=== PATIENT | female | born 1990 | race Caucasian/White ===

== ENCOUNTER 2022-11-01 19:15 | Inpatient (IN) | payer BC ==
[2022-11-01] MEDS ORDERED: Bupivacaine 0.25% HCL 30 ML VIAL ONE (19:29)
[2022-11-01] MEDS ORDERED: Bupivacaine HCl 0.5%/Epinephrine 1:200,000/PF 30 ml Vial ONE (19:29)
[2022-11-01] MEDS ORDERED: Butorphanol Tartrate 1 MG/ML VIAL SLOW IVP PRN (20:35)
[2022-11-01] MEDS ORDERED: Docusate 100 MG CAP PO PRN (20:35)
[2022-11-01] MEDS ORDERED: NS w/ Oxytocin 30 units 500 ML IV SCH (20:35)
[2022-11-01] MEDS ORDERED: Acetaminophen 500 MG TAB PO PRN (20:35)
[2022-11-01] MEDS ORDERED: Promethazine HCl 25 MG/ML VIAL IM PRN (20:35)
[2022-11-01] MEDS ORDERED: Misoprostol 200 MCG TAB PR PRN (20:35)
[2022-11-01] MEDS ORDERED: Diphenoxylate HCl/Atropine Tablet PO PRN ×2 (20:35)
[2022-11-01] MEDS ORDERED: Ondansetron PF 4 MG/2 ML Vial IVP PRN (20:35)
[2022-11-01] MEDS ORDERED: Zolpidem Tartrate 5 MG TAB PO PRN (20:35)
[2022-11-01] MEDS ORDERED: hydrALAZINE 20 MG/ML VIAL SLOW IVP PRN (20:35)
[2022-11-01] MEDS ORDERED: Ibuprofen 800 MG TAB PO PRN (20:35)
[2022-11-01] MEDS ORDERED: HYDROcodone/Acetaminophen 5/325 mg Tablet PO PRN ×2 (20:35)
[2022-11-01] MEDS ORDERED: Lidocaine 1% (PF) 30 ML VIAL SC PRN (20:35)
[2022-11-01] MEDS ORDERED: Misoprostol 100 MCG TAB VAG SCH (21:00)
[2022-11-01 21:39] LABS: Hemoglobin 12.4 g/dL (12.0-15.5); Mean Corpuscular HGB CONC 36.9 g/dL (32.0-36.0); Mean Platelet Volume 10.5 fl (7.4-10.4); Platelet Count 206 10x3/uL (150-450); RBC Distribution Width 12.4 % (11.5-14.5); White Blood Cell (WBC) Count 13.2 10x3/uL (3.5-10.5)
[2022-11-01 21:46] VITALS: BMI 31.8
[2022-11-01 22:29] LABS: HBSAg Index 0.14 S/CO (0-0.99); HIV (1/2) Antibody/Antigen Non-Reactive (NonReactive); HIV 1/2 INDEX 0.11 S/CO (<1.00); Hep B Surf Ag Non-Reactive S/CO (NonReactive)
[2022-11-01 22:30] LABS: Syphilis Antibody Nonreactive (Nonreactive); Syphilis Antibody Index 0.37 S/CO (<1.00 Non-Reactive)
[2022-11-02] MEDS ORDERED: Fentanyl 2 mcg/Bup 0.1% Cadd 100 ML ONE (06:50)
[2022-11-02] MEDS ORDERED: Naloxone HCl 0.4 mg/ml Vial IVP PRN ×2 (07:04)
[2022-11-02] MEDS ORDERED: Lactated Ringer's 500 ML IV PRN (07:04)
[2022-11-02] MEDS ORDERED: ePHEDrine Sulfate 50 MG/10 ML VIAL SLOW IVP PRN (07:04)
[2022-11-02] MEDS ORDERED: Moisturizing Cream (Eucerin) 113 GM JAR TOP PRN (07:04)
[2022-11-02] MEDS ORDERED: Acetaminophen 325 MG TAB PO PRN (07:04)
[2022-11-02] MEDS ORDERED: diphenhydrAMINE 50 MG/ML VIAL IVP PRN (07:04)
[2022-11-02] MEDS ORDERED: Promethazine HCl 25 MG/ML VIAL IM PRN (07:04)
[2022-11-02] MEDS ORDERED: Ondansetron PF 4 MG/2 ML Vial IVP PRN ×2 (07:04→21:30)
[2022-11-02] MEDS ORDERED: Communication Order-Pharmacy FS SCH (07:15)
[2022-11-02] MEDS: Fentanyl 2 mcg/Bupivacaine 0.1% Cassette 100 ML EPIDURAL SCH ×2 (07:38→15:53)
[2022-11-02 16:30] LABS: SARS-CoV-2 NAA Rapid Test Not Detected (NotDetected)
[2022-11-02] MEDS ORDERED: Preparation H Ointment 28 GM TUBE PR PRN (21:30)
[2022-11-02] MEDS ORDERED: Lanolin Ointment 7 GM TUBE TOP PRN (21:30)
[2022-11-02] MEDS ORDERED: Bisacodyl 10 MG SUPP PR PRN (21:30)
[2022-11-02] MEDS ORDERED: Benzocaine-Menthol 82.5 ML CAN TOP PRN (21:30)
[2022-11-02] MEDS ORDERED: HYDROcodone/Acetaminophen 5/325 mg Tablet PO PRN (21:30)
[2022-11-02] MEDS ORDERED: diphenhydrAMINE 25 MG CAP PO PRN (21:30)
[2022-11-02] MEDS ORDERED: Boostrix 0.5 ML (Tdap) VIAL (>/=7 yrs of age) IM SCH (21:30)
[2022-11-02] MEDS ORDERED: Milk Of Magnesia 30 ML UDCUP PO PRN (21:30)
[2022-11-02] MEDS ORDERED: hydrALAZINE 20 MG/ML VIAL SLOW IVP PRN (21:31)
[2022-11-02] MEDS ORDERED: Witch Hazel-Glycerin 1 EACH JAR TOP PRN (21:32)
[2022-11-02] MEDS ORDERED: NS w/ Oxytocin 30 units 500 ML IVPB PRN (21:32)
[2022-11-02] MEDS: Ibuprofen 800 MG TAB PO SCH (22:06)
[2022-11-03] MEDS: HYDROcodone/Acetaminophen 5/325 mg Tablet PO PRN ×2 (04:33→11:02)
[2022-11-03] MEDS: Ibuprofen 800 MG TAB PO SCH ×2 (05:18→15:28)
[2022-11-03] MEDS: Ferrous Sulfate 325 MG TAB PO SCH ×2 (07:21→17:09)
[2022-11-03] MEDS ORDERED: Docusate 100 MG CAP PO SCH (09:00)
[2022-11-03] MEDS ORDERED: Prenatal Vitamin 1 TAB PO SCH (09:00)
[2022-11-03] MEDS: Lactated Ringer's 1,000 ML IV SCH (17:37)
[2022-11-03 19:52] VITALS: BP 133/75; TEMP 98
== END 2022-11-03 20:30 | disposition home or self-care (01) | DRG 807 ==
LOC: CSHLD 20:07 → CSHPP 11-02 20:15
PROVIDERS: ADMIT Obstetrics & Gynecology; ATTEND Obstetrics & Gynecology
PROC: 10E0XZZ Delivery of Products of Conception, External Approach (ICD-10-PCS; principal; 2022-11-02)
PROC: 0HQ9XZZ Repair Perineum Skin, External Approach (ICD-10-PCS; 2022-11-02)
PROC: 10907ZC Drainage of Amniotic Fluid, Therapeutic from Products of Conception, Via Natural or Artificial Opening (ICD-10-PCS; 2022-11-02)
PROC: 3E0P7VZ Introduction of Hormone into Female Reproductive, Via Natural or Artificial Opening (ICD-10-PCS; 2022-11-02)
DX: O70.0 First degree perineal laceration during delivery (principal); Z37.0 Single live birth; Z3A.39 39 weeks gestation of pregnancy; Z20.822 Contact with and (suspected) exposure to COVID-19
CPT/HCPCS: 51702; 85027; 86780; 86850; 86900; 86901; 87340; 87389; S0020; U0002

== ENCOUNTER 2024-02-17 05:26 | Inpatient (IN) | payer BC ==
[2024-02-17] MEDS ORDERED: Ibuprofen 800 MG TAB PO PRN (05:54)
[2024-02-17] MEDS ORDERED: Lidocaine 1% (PF) 30 ML VIAL SC PRN (05:54)
[2024-02-17] MEDS ORDERED: Lactated Ringer's 1,000 ML IV SCH (05:54)
[2024-02-17] MEDS ORDERED: Docusate 100 MG CAP PO PRN (05:54)
[2024-02-17] MEDS ORDERED: Penicillin G Potassium 5 MILL.UNITS in Sodium Chloride 0.9% 100 ML IVPB SCH (05:54)
[2024-02-17] MEDS ORDERED: Misoprostol 200 MCG TAB PR PRN (05:54)
[2024-02-17] MEDS ORDERED: Acetaminophen 500 MG TAB PO PRN (05:54)
[2024-02-17] MEDS ORDERED: Methylergonovine 0.2 MG/ML VIAL IM PRN (05:54)
[2024-02-17] MEDS ORDERED: Ondansetron PF 4 MG/2 ML Vial IVP PRN ×3 (05:54→15:44)
[2024-02-17] MEDS ORDERED: Carboprost 250 MCG/ML AMP IM PRN (05:54)
[2024-02-17] MEDS ORDERED: Diphenoxylate HCl/Atropine Tablet PO PRN ×2 (05:54)
[2024-02-17] MEDS ORDERED: HYDROcodone/Acetaminophen 5/325 mg Tablet PO PRN ×2 (05:54)
[2024-02-17] MEDS ORDERED: Oxytocin 30 units/NS 500 ML 500 ML IV SCH ×2 (05:54→15:45)
[2024-02-17] MEDS ORDERED: hydrALAZINE 20 MG/ML VIAL SLOW IVP PRN ×2 (05:54→15:44)
[2024-02-17] MEDS ORDERED: Promethazine HCl 25 MG/ML VIAL IM PRN ×2 (05:54→08:59)
[2024-02-17 06:08] VITALS: BMI 33.3
[2024-02-17] MEDS: Oxytocin 30 units/NS 500 ML 500 ML IV SCH ×2 (06:44→16:38)
[2024-02-17] MEDS: Penicillin G Potassium 5 MILL.UNITS in Sodium Chloride 0.9% 100 ML IVPB SCH (06:44)
[2024-02-17 06:49] LABS: Hemoglobin 12.2 g/dL (12.0-15.5); Mean Corpuscular HGB CONC 35.9 g/dL (32.0-36.0); Mean Corpuscular Hemoglobin 29.8 pg (27.0-33.0); Mean Corpuscular Volume 82.9 fl (81.6-98.3); Mean Platelet Volume 11.5 fl (7.4-10.4); Platelet Count 183 10x3/uL (150-450); RBC Distribution Width 13.2 % (11.5-14.5); White Blood Cell (WBC) Count 10.3 10x3/uL (3.5-10.5)
[2024-02-17 07:35] LABS: HBSAg Index 0.23 S/CO (0-0.99); Hep B Surf Ag - L&D Non-Reactive S/CO (NonReactive)
[2024-02-17 07:36] LABS: Syphilis Antibody Nonreactive (Nonreactive); Syphilis Antibody Index 0.51 S/CO (<1.00 Non-Reactive)
[2024-02-17 07:37] LABS: HIV (1/2) Antibody/Antigen Non-Reactive (NonReactive); HIV 1/2 INDEX 0.14 S/CO (<1.00)
[2024-02-17] MEDS: fentaNYL 50 mcg/mL 1 mL Vial SLOW IVP PRN (08:55)
[2024-02-17] MEDS ORDERED: Naloxone HCl 0.4 mg/ml Vial IVP PRN ×2 (08:59)
[2024-02-17] MEDS ORDERED: ePHEDrine Sulfate 50 MG/10 ML VIAL SLOW IVP PRN (08:59)
[2024-02-17] MEDS ORDERED: Moisturizing Cream (Eucerin) 113 GM JAR TOP PRN (08:59)
[2024-02-17] MEDS ORDERED: diphenhydrAMINE 50 MG/ML VIAL IVP PRN (08:59)
[2024-02-17] MEDS ORDERED: Lactated Ringer's 500 ML IV PRN (08:59)
[2024-02-17] MEDS ORDERED: Acetaminophen 325 MG TAB PO PRN (08:59)
[2024-02-17] MEDS ORDERED: Communication Order-Pharmacy FS SCH (09:00)
[2024-02-17] MEDS ORDERED: fentaNYL 2 mcg/Ropivacaine 0.2% Epidural 100 ML CADD EPIDURAL SCH (09:00)
[2024-02-17] MEDS: fentaNYL/Ropivacaine Epidural 100 ML ONE (09:20)
[2024-02-17] MEDS: Penicillin G 2.5 MILL.units 2.5 MILL.UNITS in Premix 1 BAG IVPB SCH (10:46)
[2024-02-17] MEDS ORDERED: Bupivacaine 0.25% HCL 30 ML VIAL ONE (14:52)
[2024-02-17] MEDS ORDERED: Milk Of Magnesia 30 ML UDCUP PO PRN (15:44)
[2024-02-17] MEDS ORDERED: Lanolin Ointment 7 GM TUBE TOP PRN (15:44)
[2024-02-17] MEDS ORDERED: diphenhydrAMINE 25 MG CAP PO PRN (15:44)
[2024-02-17] MEDS ORDERED: Bisacodyl 10 MG SUPP PR PRN (15:44)
[2024-02-17] MEDS ORDERED: Preparation H Ointment 28 GM TUBE PR PRN (15:44)
[2024-02-17] MEDS ORDERED: Misoprostol 200 MCG TAB VAG PRN (15:44)
[2024-02-17] MEDS: Ferrous Sulfate 325 MG TAB PO SCH (17:32)
[2024-02-17] MEDS ORDERED: Zolpidem Tartrate 5 MG TAB PO PRN (17:48)
[2024-02-17] MEDS: HYDROcodone/Acetaminophen 5/325 mg Tablet PO PRN (18:15)
[2024-02-17] MEDS: Docusate 100 MG CAP PO SCH (21:09)
[2024-02-17] MEDS: Ibuprofen 800 MG TAB PO SCH (21:09)
[2024-02-17] MEDS: Benzocaine-Menthol 82.5 ML CAN TOP PRN (21:10)
[2024-02-18] MEDS: HYDROcodone/Acetaminophen 5/325 mg Tablet PO PRN (03:39)
[2024-02-18 06:20] LABS: Hematocrit 33.6 % (34.9-44.5); Hemoglobin 11.6 g/dL (12.0-15.5); Mean Corpuscular HGB CONC 34.5 g/dL (32.0-36.0); Mean Corpuscular Hemoglobin 29.4 pg (27.0-33.0); Mean Corpuscular Volume 85.3 fl (81.6-98.3); Mean Platelet Volume 11.4 fl (7.4-10.4); Platelet Count 153 10x3/uL (150-450); RBC Distribution Width 13.3 % (11.5-14.5); Red Blood Cell (RBC) Count 3.94 10x6/uL (3.90-5.03); White Blood Cell (WBC) Count 12.9 10x3/uL (3.5-10.5)
[2024-02-18] MEDS: fentaNYL 50 mcg/mL 1 mL Vial ONE (07:26)
[2024-02-18] MEDS: Prenatal Vitamin 1 TAB PO SCH (08:16)
[2024-02-18] MEDS: Boostrix 0.5 ML (Tdap) VIAL (>/=7 yrs of age) IM ONE (08:25)
[2024-02-18 12:54] VITALS: BP 129/78; TEMP 98.5
== END 2024-02-18 16:55 | disposition home or self-care (01) | DRG 807 ==
LOC: CSHLD 05:26 → CSHPP 17:40
PROVIDERS: ADMIT Obstetrics & Gynecology; ATTEND Obstetrics & Gynecology
PROC: 10E0XZZ Delivery of Products of Conception, External Approach (ICD-10-PCS; principal; 2024-02-17)
PROC: 0HQ9XZZ Repair Perineum Skin, External Approach (ICD-10-PCS; 2024-02-17)
PROC: 10907ZC Drainage of Amniotic Fluid, Therapeutic from Products of Conception, Via Natural or Artificial Opening (ICD-10-PCS; 2024-02-17)
DX: O99.824 Streptococcus B carrier state complicating childbirth (principal); Z37.0 Single live birth; Z3A.39 39 weeks gestation of pregnancy; O70.0 First degree perineal laceration during delivery
CPT/HCPCS: 51702; 85027; 86780; 86850; 86900; 86901; 87340; 87389; J0665; J2540; J2590; J3010; J3490